=== PATIENT | male | born 1995 | race Caucasian/White ===

== ENCOUNTER 2024-03-21 22:20 | Inpatient (IN) | payer MEDICAID, OTHER ==
[~2024-03-21] VITALS: Ht 170.2 cm; Wt 92.0 kg
[2024-03-21 22:35] VITALS: PULSE 111; RESP 26; O2SAT 99
[2024-03-21 23:00] LABS: Hematocrit 43.3 % (41.0-53.0); Hemoglobin 15.1 g/dL (13.5-17.5); Mean Corpuscular Hemoglobin 34.2 pg (28.0-32.0); Mean Corpuscular Hgb Conc. 34.8 g/dL (32.0-36.0); Mean Corpuscular Volume 98.3 fL (80.0-100.0); Platelet Count (auto) 221 10^3/uL (140-450); Red Cell Distribution Width 12.8 % (11.8-14.3); White Blood Cell 5.5 10^3/uL (4.4-10.8)
[2024-03-21 23:02] LABS: Band Neutrophils % (manual) 0; Basophils % (manual) 0 (0.0-2.0); Blast Cells 0; Metamyelocytes % 0; Myelocytes % 0; Promyelocytes % 0; Reactive Lymphocytes 0
[2024-03-21 23:18] LABS: Eosinophils % (manual) 1 (0-7); Lymphocytes % (manual) 59 (10.0-50.0); Monocytes % (manual) 5 (0-12)
[2024-03-21 23:19] LABS: Platelet Estimate Adequate
[2024-03-21 23:22] LABS: Alanine Aminotransferase 12 U/L (7-40); Alkaline Phosphatase 89 U/L (46-116); Anion Gap 11 (5-15); Aspartate Aminotransferase 12 U/L (13-40); BUN/Creatinine Ratio 7.1 (10.0-20.0); Bilirubin, Total 0.4 mg/dL (0.2-1.0); Blood Alcohol 235.6 mg/dL (<10); Blood Urea Nitrogen 7 mg/dL (9-23); Calcium 9.4 mg/dL (8.7-10.4); Carbon Dioxide 24 mmol/L (20-31); Chloride 108 mmol/L (98-107); Glucose 117 mg/dL (74-106); Magnesium 2.2 mg/dL (1.6-2.6); Potassium 3.5 mmol/L (3.5-5.1); Sodium 143 mmol/L (136-145); Total Protein 7.8 g/dL (5.7-8.2)
[2024-03-22] VITALS (7 sets, daily range): BP systolic 134–141; BP diastolic 76–86; PULSE 60–91; RESP 10–18; TEMP 98.1–98.4; O2SAT 95–100
[2024-03-22] LABS: Lactic Acid w/Reflex 3.1 mmol/L (0.4-2.0)
[2024-03-22 00:28] LABS: Urine Bacteria None Seen /hpf (None Seen); Urine WBC None Seen /hpf (0 - 3)
[2024-03-22 00:41] LABS: Urine Blood Negative /uL (Negative); Urine Clarity Clear (Clear); Urine Protein, UAD Negative (Negative); Urine Specific Gravity 1.002 (1.001-1.035); Urine Urobilinogen Normal (Negative); Urine pH 5.5 (5.0-9.0)
[2024-03-22] MEDS: LORazepam 2MG/ML-1ML VIAL IM ONE (00:55)
[2024-03-22 00:58] LABS: Urine Color STRAW (Yellow)
[2024-03-22 01:33] LABS: Amphetamine Screen, Urine Neg (NEGATIVE); Barbiturate Scree,Urine Neg (NEGATIVE); Benzodiazephine Screen, Urine Neg (NEGATIVE); Cannabinoid Screen, Urine Pos (NEGATIVE); Cocaine Screen, Urine Neg (NEGATIVE); Opiate Scree,Urine Neg (NEGATIVE); Phencyclidine Screen, Urine Neg (NEGATIVE)
[2024-03-22] MEDS ORDERED: NITROGLYCERIN 0.4 MG SL TAB SL PRN (02:00)
[2024-03-22] MEDS ORDERED: LORazepam 2MG/ML-1ML VIAL IV PRN (02:00)
[2024-03-22] MEDS ORDERED: MORPHINE SULFATE INJ 2 MG/ml SYRG IV PRN (02:00)
[2024-03-22] MEDS ORDERED: ACETAMINOPHEN 325 MG TAB PO PRN (02:00)
[2024-03-22] MEDS ORDERED: DOCUSATE SOD 100 MG CAP PO PRN (02:00)
[2024-03-22] MEDS ORDERED: HYDROcodone-ACET 5/325MG TAB PO PRN (02:00)
[2024-03-22] MEDS ORDERED: ONDANSETRON HCL 4 MG/2 ML VIAL IV PRN (02:00)
[2024-03-22] MEDS: SODIUM CHLORIDE 0.9% 1,000 ML IV SCH (02:57)
[2024-03-22] MEDS: SODIUM CHLORIDE 0.9% 2,000 ML IV ONE (05:12)
[2024-03-22 05:45] LABS: Basophils # (auto) 0 10 ^3/uL (0-0.2); Eosinophils # (auto) 0 10 ^3/uL (0-0.8); Eosinophils % (auto) 0.2 % (0.0-7.0); Hemoglobin 14.7 g/dL (13.5-17.5); Lymphocytes # (auto) 2.2 10 ^3/uL (0.4-5.4); Neutrophils % (auto) 43.6 % (37.0-80.0)
[2024-03-22 05:49] LABS: Basophils % (auto) 0.1 % (0.0-2.0); Hematocrit 41.6 % (41.0-53.0); Lymphocytes % (auto) 48.6 % (10.0-50.0); Mean Corpuscular Hemoglobin 34.9 pg (28.0-32.0); Mean Corpuscular Hgb Conc. 35.3 g/dL (32.0-36.0); Monocytes # (auto) 0.3 10 ^3/uL (0-1.3); Monocytes % (auto) 7.5 % (0.0-12.0); Nucleated Red Blood Cells % 0.4 %; Platelet Count (auto) 206 10^3/uL (140-450); Red Cell Distribution Width 12.6 % (11.8-14.3); White Blood Cell 4.6 10^3/uL (4.4-10.8)
[2024-03-22 06:07] LABS: Alanine Aminotransferase 10 U/L (7-40); Albumin 4.7 g/dL (3.2-4.8); Alkaline Phosphatase 85 U/L (46-116); Anion Gap 8 (5-15); Aspartate Aminotransferase 10 U/L (13-40); BUN/Creatinine Ratio 6.6 (10.0-20.0); Bilirubin, Total 0.4 mg/dL (0.2-1.0); Blood Urea Nitrogen 6 mg/dL (9-23); Calcium 9.2 mg/dL (8.7-10.4); Carbon Dioxide 25 mmol/L (20-31); Chloride 111 mmol/L (98-107); Glucose 100 mg/dL (74-106); Potassium 4.1 mmol/L (3.5-5.1); Sodium 144 mmol/L (136-145)
[2024-03-22 06:08] LABS: Total Protein 7.3 g/dL (5.7-8.2)
[2024-03-22] MEDS: MULTIPLE VITAMIN TAB PO SCH (10:56)
[2024-03-22] MEDS: THIAMINE HCL 100 MG TAB PO SCH (10:57)
[2024-03-22] MEDS: FOLIC ACID 1 MG TAB PO SCH (10:57)
[2024-03-22] MEDS ORDERED: hydrOXYzine HCL 10 MG TAB PO PRN (13:00)
[2024-03-22] MEDS: hydrOXYzine HCL 10 MG TAB PO PRN (16:34)
[2024-03-22] MEDS: FOLIC ACID 1 MG, MULTIPLE VITAMIN 10 ML, MAGNESIUM SULF SDV 50% 8 MEQ, THIAMINE INJ 100... INJ SCH (18:41)
[2024-03-23 01:00] VITALS: BP 131/84; PULSE 42; RESP 16; TEMP 98.1; O2SAT 90
[2024-03-23 05:00] VITALS: BP 140/87; PULSE 41; RESP 16; TEMP 98.2; O2SAT 94
[2024-03-23 08:00] VITALS: PULSE 45
[2024-03-23 08:09] LABS: Basophils # (auto) 0 10 ^3/uL (0-0.2); Eosinophils # (auto) 0.1 10 ^3/uL (0-0.8); Eosinophils % (auto) 1.3 % (0.0-7.0); Lymphocytes # (auto) 2.4 10 ^3/uL (0.4-5.4); Monocytes # (auto) 0.4 10 ^3/uL (0-1.3)
[2024-03-23 08:13] LABS: Basophils % (auto) 0.6 % (0.0-2.0); Hematocrit 41.3 % (41.0-53.0); Hemoglobin 14.2 g/dL (13.5-17.5); Lymphocytes % (auto) 49.8 % (10.0-50.0); Mean Corpuscular Hemoglobin 34.4 pg (28.0-32.0); Mean Corpuscular Hgb Conc. 34.3 g/dL (32.0-36.0); Mean Corpuscular Volume 100.4 fL (80.0-100.0); Monocytes % (auto) 8.6 % (0.0-12.0); Neutrophils # (auto) 1.9 10 ^3/uL (1.6-8.6); Neutrophils % (auto) 39.7 % (37.0-80.0); Nucleated Red Blood Cells % 0.1 %; Platelet Count (auto) 182 10^3/uL (140-450); Red Blood Cells 4.12 10^6/uL (4.5-5.90); White Blood Cell 4.8 10^3/uL (4.4-10.8)
[2024-03-23 09:00] VITALS: BP 146/74; PULSE 60; RESP 20; TEMP 98.1; O2SAT 100
[2024-03-23 11:16] LABS: Alanine Aminotransferase 11 U/L (7-40); Albumin 4.5 g/dL (3.2-4.8); Alkaline Phosphatase 84 U/L (46-116); Anion Gap 7 (5-15); Aspartate Aminotransferase 10 U/L (13-40); Calcium 9.3 mg/dL (8.7-10.4); Carbon Dioxide 24 mmol/L (20-31); Chloride 110 mmol/L (98-107); Cholesterol 181 mg/dL (< 200); Glucose 99 mg/dL (74-106); HDL Cholesterol 49 mg/dL (40-59); LDL Cholesterol 120 mg/dL (< 100); Sodium 141 mmol/L (136-145); Triglycerides 105 mg/dL (< 150)
[2024-03-23 11:17] LABS: BUN/Creatinine Ratio 6.3 (10.0-20.0); Bilirubin, Total 0.7 mg/dL (0.2-1.0); Blood Urea Nitrogen < 5 mg/dL (9-23)
[2024-03-23 13:38] VITALS: BP 130/95; PULSE 61; RESP 20; TEMP 97.8; O2SAT 98
== END 2024-03-23 14:46 | disposition home or self-care (01) | DRG 816 ==
LOC: ER 22:20 → EDBD 22:20 → TELE 03-22 01:58 → TELE-WESTW 03-22 09:05
PROVIDERS: ADMIT Internal Medicine; ATTEND Internal Medicine
DX: T51.91XA Toxic effect of unspecified alcohol, accidental (unintentional), initial encounter (principal); E87.20 Acidosis, unspecified; R56.9 Unspecified convulsions; F10.129 Alcohol abuse with intoxication, unspecified; F31.9 Bipolar disorder, unspecified; F41.9 Anxiety disorder, unspecified; F12.10 Cannabis abuse, uncomplicated; R00.0 Tachycardia, unspecified; Y90.9 Presence of alcohol in blood, level not specified; Y92.89 Other specified places as the place of occurrence of the external cause
CPT/HCPCS: 36415; 70450; 71045; 80053; 80061; 80307; 80320; 81001; 83036; 83605; 83735; 84484; 85007; 85025; 85027; 93005; G0378

== ENCOUNTER 2025-01-21 18:11 | Emergency (ER) | payer SELFPAY ==
[~2025-01-21] VITALS: Ht 170.2 cm; Wt 86.0 kg
[2025-01-21 18:50] VITALS: BP 143/92; PULSE 81; RESP 15; TEMP 98.6; O2SAT 96
--- NOTE | 2025-01-21 18:50 | ED.PDOC ---
Musculoskeletal HPI Comments 29 year old male presents to ER with complaints of left great toe injury x 1 month. Patient states he dropped "an object" on his left great toe 1 month ago and notes his left great toe nail initially turned "purple" but was concerned that his left great toe nail recently turned "yellow" prompting him to come to ER for further evaluation. Denies any pain and presents to ER ambulatory on arrival, steady gait, in no distress. Denies skin changes, numbness/tingling, fever or any further symptoms/complaints Chief Complaint: Lower Extremity Time Seen by MD: 18:14 Primary Care Provider: EUNICE Reviewed Notes: Nurses Notes, Medications, Allergies Allergies: Coded Allergies: NO KNOWN ALLERGIES (Unverified , 03/21/24) Home Meds No Active Prescriptions or Reported Meds Information Source: Patient Mode of Arrival: Ambulatory Past Medical History PAST MEDICAL HISTORY: Denies Surgical History: Denies all surgeries Family History Family History: Unknown Social History Lives In: Home Constitutional: denies: chills, diaphoresis, fatigue, fever, malaise, sweats, weakness, others EENTM: denies: blurred vision, double vision, ear bleeding, ear discharge, ear drainage, ear pain, ear ringing, eye pain, eye redness, hearing loss, mouth p ain, mouth swelling, nasal discharge, nose bleeding, nose congestion, nose pain, photophobia, tearing, throat pain, throat swelling, voice changes, others Respiratory: denies: cough, hemoptysis, orthopnea, SOB at rest, shortness of br eath, SOB with excertion, stridor, wheezing, others Cardiovascular: denies: chest pain, dizzy spells, diaphoresis, Dyspnea on exertion, edema, irregular heart beat, left arm pain, lightheadedness, palpitations, PND, syncope, others Gastrointestinal: denies: abdomen distended, abdominal pain, blood streaked bowels, constipated, diarrhea, dysphagia, difficulty swallowing, hematemesis, melena, nausea, poor appetite, poor fluid intake, rectal bleeding, rectal pain, vomiting, others Genitourinary: denies: burning, dysuria, flank pain, frequency, hematuria, incontinence, penile discharge, penile sore, pain, testicle pain, testicle swelling, urgency, others Neurological: denies: dizziness, fainting, headache, left sided numbness, left sided weakness, numbness, paresthesia, pre-existing deficit, right sided numbness, right sided weakness, seizure, speech problems, tingling, tremors, weakness, others Musculoskeletal: reports: others (As stated in HPI) Integumetry: denies: bruises, change in color, change in hair/nails, dryness, laceration, lesions, lumps, rash, wounds, others Allergic/Immunocompromised: denies: Difficulty Healing, Frequent Infections, Hives, Itching, others Hematologic/Lymphatic: denies: anemia, blood clots, easy bleeding, easy bruising, swollen glands, others Endocrine: denies: excessive hunger, excessive sweating, excessive thirst, excessive urination, flushing, intolerance to cold, intolerance to heat, unexplained weight gain, unexplained weight loss, others Psychiatric: denies: anxiety, bipolar disorder, depression, hopeless, panic disorder, schizophrenia, sleepless, suicidal, others Physical Exam General Appearance: No Apparent Distress HEENT: PERRL/EOMI Neck: Full Range of Motion, Non-Tender, Normal Respiratory: Chest Non-Tender, Lungs Clear, No Accessory Muscle Use, No Respiratory Distress, Normal Breath Sounds Cardiovascular: No Murmur, No Gallop, Regular Rate/Rhythm Breast Exam: Deferred Gastrointestinal: NOT DONE Genitalia: Deferred Pelvic: Deferred Rectal: Deferred Extremities: Normal capillary refill, Normal range of motion Neurologic: Alert, celluloid trimmer II-XII nml as Tested, No Motor Deficits, Normal Affect, Normal Mood, No Sensory Deficits Cerebellar Function: Normal Reflexes: Normal Skin: Dry, Normal Color, Warm, Other (Slight yellow discoloration to left great toenail and minimal residual subungual hematoma appreciated. No bony tenderness erythema/swelling/drainage noted. Patient able to move all toes of left foot. Pulses intact) Peripheral Pulses: 2+ dorsalis pedis (R), 2+ dorsalis pedis (L) Lymphatic: No Adenopathy Was a procedure done? Was a procedure done?: No Sedation Sedation?: No Differential Diagnosis EXT Differential Diagnosis: Cellulitis, Fracture, Dislocation, Neurovascular injury X-Ray, Labs, Meds, VS Vital Signs Date Time Temp Pulse Resp B/P (MAP) Pulse Ox O2 Delivery O2 Flow Rate FiO2 01/21/25 18:50 98.6 81 15 143/92 (109) 96 98.6 01/21/25 18:50 81 15 96 Room Air 01/21/25 18:15 98.6 81 15 143/92 96 98.6 Advised to follow up with PCP in 1-2 days Patient verbalized understanding and agreeable with current plan of care Advised to return to ER immediately if symptoms worsen Time of 1ST Reevaluation: 18:14 Reevaluation 1ST: N/A Patient Education/Counseling: Diagnosis, Treatment, Prognosis, Need For Follow Up Family Education/Counseling: No Family Present Departure 1 Departure Time of Disposition: 18:44 Impression: Primary Impression: Subungual hematoma of toe of left foot Qualified Codes: S90.222A - Contusion of left lesser toe(s) with damage to nail, initial encounter Disposition: 01 HOME / SELF CARE / HOMELESS Condition: Stable e-Prescriptions No Active Prescriptions or Reported Meds Discharged With: Self Critical Care Note Critical Care Time?: No Stability Stability form required: No Heart Score Heart Score: Heart Score Response (Comments) Value History N/A 0 EKG N/A 0 Age N/A 0 Risk Factors N/A 0 Troponin N/A 0 Total 0 BIANKA [id number] Jan 21, 2025 18:50
== END 2025-01-21 18:55 | disposition home or self-care (01) ==
LOC: ER 18:11
DX: S90.112A Contusion of left great toe without damage to nail, initial encounter (principal); W22.8XXA Striking against or struck by other objects, initial encounter; Y93.89 Activity, other specified; Y92.89 Other specified places as the place of occurrence of the external cause; Y99.8 Other external cause status